=== PATIENT | male | born 1980 | race Caucasian/White ===

== ENCOUNTER 2021-06-06 14:47 | Outpatient (CLI) | payer BC, SELFPAY | END 2021-06-06 23:59 | disposition short-term general hospital (02) | LOC: LABSPEC 14:48 | PROVIDERS: Referring Provider Physician Assistant Surgical; Visit Provider Physician Assistant Surgical | DX: U07.1 COVID-19 (principal) | CPT/HCPCS: 87635; U0003; U0005 ==

== ENCOUNTER → 2024-04-30 | Outpatient (CLI) | payer BC, SELFPAY ==
--- NOTE | 2024-04-30 13:30 | LES_PTH ---
PATIENT: TORRIE BARRIENTOS LOC: [facility] U#:[id number] AGE/SX: 44/M ROOM: RE04/30/[address]: Dr. Joshua Maxwell MD : [id number] BED: DIS: 04/30/2024 SPEC #: [id number] RECD: 04/30/24 14:17 STATUS: PETE REMatthew #: [id number] NEMO: 04/30/24 13:[address]: Joshua Maxwell DEPT: SURGICAL PATHOLOGY RECD BY: Janki Castano ENTERED: 05/01/24 06:32 SP TYPE: Lesion OTHR DR: No Primary Care Phys Tissues: Skin of scalp, NOS Procedures: Surgery Specimen Level IV HEADER OPERATION: Excision of scalp lesion PRE-OP DIAGNOSIS: Scalp lesion TISSUE SUBMITTED: Scalp lesion MICROSCOPIC DIAGNOSIS Scalp lesion, biopsy: Consistent with verrucous keratosis with associated cutaneous horn. See comment. AM.mr 05/02/2024 COMMENT The lesion is transected at the base. Excision of lesion is recommended for definite classification. MICROSCOPIC DESCRIPTION Slides are reviewed. GROSS DESCRIPTION Received in fixative is one container labeled with the patient's name and designated Scalp lesion. The specimen consists of an ellipse of red-parish excised skin measuring 1.1 x 0.7 and a depth of excision measuring 0.8cm. The specimen is inked, serially sectioned and totally submitted in one cassette. Gabi 05/01/2024 TC:? CPT:[id number]
== END | disposition home or self-care (01) ==
LOC: LABSPEC 14:37
PROVIDERS: Referring Provider Surgery; Visit Provider Surgery
DX: L98.9 Disorder of the skin and subcutaneous tissue, unspecified (principal)
CPT/HCPCS: 88305